=== PATIENT | male | born 2000 | race Caucasian/White ===

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

== ENCOUNTER 2018-04-24 22:30 | Inpatient (IN) ==
[2018-04-24 23:05] LABS: Appearance Urine Clear (Clear); Bilirubin Urine Negative (Negative); Color Urine Yellow; Glucose Urine UA Negative (Negative); Ketones Urine Negative (Negative); Leukocyte Esterase Urine Negative (Negative); Nitrite Urine Negative (Negative); Protein Urine Negative (Negative); Specific Gravity Urine 1.031 (1.000-1.030); Urobilinogen Urine Negative (Negative)
[2018-04-24 23:21] LABS: Basophils # (auto) 0.03 K/uL (0-0.2); Basophils % (auto) 0.4 %; Eosinophils # (auto) 0.22 K/uL (0-0.5); Eosinophils % (auto) 3.2 %; Hematocrit (blood only) 47.3 % (42-52); Hemoglobin 16.6 g/dL (14.0-18.0); Immature Granulocytes # (auto) 0.01 K/uL (0.00-0.02); Immature Granulocytes % (auto) 0.1 %; Lymphocytes # (auto) 2.27 K/uL (1.2-3.4); Lymphocytes % (auto) 32.6 %; Mean Corpuscular Hgb Conc 35.1 g/dL (32-36); Mean Corpuscular Volume 90.3 fL (80-100); Mean Platelet Volume 9.7 fL (7.4-10.4); Monocytes # (auto) 0.49 K/uL (0.11-0.59); Neutrophils # (auto) 3.95 K/uL (1.4-6.5); Neutrophils % (auto) 56.7 %; Platelet Count 230 K/uL (130-400); RDW Coefficient of Variation 12.6 % (11.5-14.5); RDW Standard Deviation 41.3 fL (36.4-46.3); Red Blood Count 5.24 M/uL (4.7-6.1); White Blood Count 6.97 K/uL (4.8-10.8)
[2018-04-24 23:30] LABS: Amphetamines+Metham, Urine Neg (Neg); Barbiturates, Urine Neg (Neg); Benzodiazepine, Urine Neg (Neg); Cocaine, Urine Neg (Neg); MDMA (Ecstacy), Urine Neg (Neg); Methadone, Urine Neg (Neg); Opiate, Urine Neg (Neg); Phencyclidine, Urine Neg (Neg)
[2018-04-24 23:54] LABS: Acetaminophen < 2 ug/ml (10-30); Salicylate < 1.7 mg/dl (2.8-20)
[2018-04-25 00:01] LABS: Albumin Globulin Ratio 1.3 (0.9-2); Albumin Level 3.8 gm/dl (3.4-5.0); BUN Creatinine Ratio 23.3 (10-20); Bilirubin,Total 0.3 mg/dl (0.2-1); Calcium 8.6 mg/dl (8.5-10.1); Creatinine Clr Calc Pharmacy 106.2 ml/min; Est GFR (African American) 113.9; Est GFR (Non-African American) 98.3; Total Protein 6.8 gm/dl (6.4-8.2)
--- NOTE | 2018-04-25 00:51 | Emergency Department Note ---
Entered by Lloyd Galindo acting as a scribe for Ryder Jade MD ED Provider Note Name: Branden Maria Age: 18, Male CC: Depression HPI: The patient is a 18 year old male who presents to the emergency department with complaints of an episode of suicidal ideations occurring today. The patient states that he has had depression for the last four years. He notes that he has recently had problems with a relationship and he reports that he cannot balance his personal problems with his academics. The patient states that he spoke to [facility] today who then called [place] police. He notes that he has been having suicidal ideations and he reports that he has been thinking about overdosing on pills. The patient states that he has been following with a counselor. He notes that he takes Venlafaxine and trazodone. He reports that he has not been admitted for depression in the past. He denies any back pain, nausea, vomiting, headache, and hallucinations. The patient states that he has not used alcohol or drugs tonight. He notes that he does not have any other medical problems and he reports that he does not have a family history of depression or bipolar. ROS: See above HPI for pertinent positives & negatives. A total of 10 systems reviewed and were otherwise negative. Past Medical History: Depression, OCD Past Surgical History: None Family History: None Social History: Student Home Medications: Venlafaxine and trazodone Allergies: None Physical: Vitals: BP 134/72, Pulse 48, Resp 16, Temp 98.6, O2 Sat 98 Exam: GENERAL: Patient is depressed and sad appearing and in no acute distress. EYES: No scleral icterus, unremarkable pupils. ENT: Mucous membranes moist, no nasal congestion. NECK: No masses appreciated, no meningismus, trachea is midline. RESPIRATORY: No dyspnea. Clear to auscultation and equal bilaterally. No wheeze , no rhonchi. CARDIOVASCULAR: Regular rate and rhythm. No murmurs, rubs, gallops appreciated. GASTROINTESTINAL: Abdomen soft, non-tender, no peritonitis. Bowel sounds positive. No masses appreciated. BACK: No midline tenderness, no CVA tenderness EXTREMITIES: Normal motion all extremities, no cyanosis, no edema. NEUROLOGIC: Alert and oriented, no acute motor or sensory deficits, no focal weakness, cranial nerves grossly intact. SKIN: No rash, no jaundice, no diaphoresis. PSYCH: Admits suicidal ideation with plan. ED Course: 2302: Past medical records reviewed. The patient was evaluated in room A8, and a complete history and physical examination were performed. Prior Medical Record , Triage/Nursing Notes, Medications, Allergies reviewed by Me 0005: I reevaluated and updated the patient. He is willing to discuss [facility] inpatient admission. [facility] will come evaluate the patient. 0135: The patient was taken up to [facility]. Labs: Reviewed and unremarkable Vital Signs: reviewed and remarkable for wnl Interventions: none Blood pressure: Normal. No Referral necessary Disposition: Admitted to [address] [place] [address] on 201 basis Differentials: Mood Disorder, Overdose, Infectious, Electrolyte Abnormality, Cardiac, Hepatic, Endocrine, Toxicologic, Neurologic, amongst other pathologies entertained. Medical Decision Makin yr old male with depression who is having increasing thoughts of harm to self. Patient is medically clear. He has not yet attempted harm though is clearly at risk. Admits plan and even recently holding handful of pills he was going to take. 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 Patient stable throughout and admitted to [address] [place] [address] Impression: Depression, suicidal ideation Ryder Jade MD The scribe's documentation has been prepared under my direction and personally reviewed by me in its entirety. I confirm that the note above accurately reflects all work, treatment, procedures, and medical decision making performed by me. Impression & Plan Depression, Suicidal ideation Past Med/Surg History Medical History Depression OCD (obsessive compulsive disorder) Family History Other No significant family history Social History Feels Safe at Home: Yes Smoking Status: Never smoker Hx Alcohol Use: No Hx Substance Use: No Beliefs That Will Affect Care: None Preferred Language: Welsh Communication Ability: Effective [employer] Hrms Developer Required: No Results & Data Vital Signs Vital Signs - 24 hr 04/24/18 22:33 04/25/18 01:37 04/25/18 02:30 Temperature 37 C Temperature Source Oral Sepsis Recent Fever Within 48 Hours No Sepsis New/Unexplained Change in Mental Status No Sepsis Action Taken by Nursing No Action Required Pulse Rate 81 Pulse Rate [Left Finger] Pulse Rate [Left Radial] 48 L Respiratory Rate 18 16 Respiratory Effort / Characteristics Non-Labored Spontaneous Respiratory Depth Normal Respiratory Pattern Regular Blood Pressure 136/80 Blood Pressure [Left Arm] 134/72 Blood Pressure [Right Arm] Blood Pressure Mean 98 Blood Pressure Mean [Left Arm] 92 Blood Pressure Mean [Right Arm] Blood Pressure Position [Right Arm] Pulse Oximetry 95 98 Oxygen Delivery Method Room Air 04/25/18 02:34 Temperature 36.7 C Temperature Source Oral Sepsis Recent Fever Within 48 Hours Sepsis New/Unexplained Change in Mental Status Sepsis Action Taken by Nursing Pulse Rate Pulse Rate [Left Finger] 60 Pulse Rate [Left Radial] Respiratory Rate 16 Respiratory Effort / Characteristics Non-Labored Spontaneous Respiratory Depth Normal Respiratory Pattern Regular Blood Pressure Blood Pressure [Left Arm] Blood Pressure [Right Arm] 165/82 H Blood Pressure Mean Blood Pressure Mean [Left Arm] Blood Pressure Mean [Right Arm] 109 Blood Pressure Position [Right Arm] Sitting Pulse Oximetry 99 Oxygen Delivery Method Room Air Home Medications Current Medication List: was personally reviewed by me Laboratory Data Attestation: I reviewed the patient's lab results. Result diagrams: 04/24/18 23:14 04/24/18 23:14 Lab Results 04/24/18 04/24/18 04/24/18 Range/Units 22:56 22:56 23:14 WBC 6.97 (4.8-10.8) K/uL RBC 5.24 (4.7-6.1) M/uL Hgb 16.6 (14.0-18.0) g/dL Hct 47.3 (42-52) % MCV 90.3 (80-100) fL MCH 31.7 (25-34) pg MCHC 35.1 (32-36) g/dL RDW Std Deviation 41.3 (36.4-46.3) fL RDW Coeff of Chauncey 12.6 (11.5-14.5) % Plt Count 230 (130-400) K/uL MPV 9.7 (7.4-10.4) fL Immature Gran % (Auto) 0.1 % Neut % (Auto) 56.7 % Lymph % (Auto) 32.6 % [place] % (Auto) 7.0 % Eos % (Auto) 3.2 % Baso % (Auto) 0.4 % Immature Gran # (Auto) 0.01 (0.00-0.02) K/uL Neut # (Auto) 3.95 (1.4-6.5) K/uL Lymph # (Auto) 2.27 (1.2-3.4) K/uL [place] # (Auto) 0.49 (0.11-0.59) K/uL Eos # (Auto) 0.22 (0-0.5) K/uL Baso # (Auto) 0.03 (0-0.2) K/uL Sodium (136-145) mmol/L Potassium (3.5-5.1) mmol/L Chloride (98-107) mmol/L Carbon Dioxide (21-32) mmol/L Anion Gap (3-11) BUN (7-18) mg/dl Creatinine (0.6-1.4) mg/dl Est Cr Clr Drug Dosing ml/min Est GFR ( Amer) Est GFR (Non-Af Amer) BUN/Creatinine Ratio (10-20) Glucose (70-99) mg/dl Calcium (8.5-10.1) mg/dl Total Bilirubin (0.2-1) mg/dl AST (15-37) U/L ALT (12-78) U/L Alkaline Phosphatase (45-117) U/L Total Protein (6.4-8.2) gm/dl Albumin (3.4-5.0) gm/dl Globulin (2.5-4.0) gm/dl Albumin/Globulin Ratio (0.9-2) TSH (0.300-4.500) uIu/ml Specimen Hemolysis Urine Color Yellow Urine Appearance Clear (Clear) Urine pH 5.0 (4.5-7.5) Ur Specific Radiant 1.031 H (1.000-1.030) Urine Protein Negative (Negative) Urine Glucose (UA) Negative (Negative) Urine Ketones Negative (Negative) Urine Blood Negative (Negative) Urine Nitrite Negative (Negative) Urine Bilirubin Negative (Negative) Urine Urobilinogen Negative (Negative) Ur Leukocyte Esterase Negative (Negative) Salicylates (2.8-20) mg/dl Urine Opiates Screen Neg (Neg) Ur Methadone, Qual Neg (Neg) Acetaminophen (10-30) ug/ml Urine Barbiturates Neg (Neg) Ur Phencyclidine (PCP) Neg (Neg) U Amphetamin/Meth Scrn Neg (Neg) MDMA (Ecstasy) Screen Neg (Neg) U Benzodiazepines Scrn Neg (Neg) Ur Cocaine Metabolite Neg (Neg) U Marijuana (THC) Screen Neg (Neg) Ethyl Alcohol mg/dL (0-3) mg/dl 04/24/18 04/24/18 04/24/18 Range/Units 23:14 23:14 23:14 WBC (4.8-10.8) K/uL RBC (4.7-6.1) M/uL Hgb (14.0-18.0) g/dL Hct (42-52) % MCV (80-100) fL MCH (25-34) pg MCHC (32-36) g/dL RDW Std Deviation (36.4-46.3) fL RDW Coeff of Chauncey (11.5-14.5) % Plt Count (130-400) K/uL MPV (7.4-10.4) fL Immature Gran % (Auto) % Neut % (Auto) % Lymph % (Auto) % [place] % (Auto) % Eos % (Auto) % Baso % (Auto) % Immature Gran # (Auto) (0.00-0.02) K/uL Neut # (Auto) (1.4-6.5) K/uL Lymph # (Auto) (1.2-3.4) K/uL [place] # (Auto) (0.11-0.59) K/uL Eos # (Auto) (0-0.5) K/uL Baso # (Auto) (0-0.2) K/uL Sodium 139 (136-145) mmol/L Potassium 4.0 (3.5-5.1) mmol/L Chloride 106 (98-107) mmol/L Carbon Dioxide 28 (21-32) mmol/L Anion Gap 5.0 (3-11) BUN 25 H (7-18) mg/dl Creatinine 1.08 (0.6-1.4) mg/dl Est Cr Clr Drug Dosing 106.2 ml/min Est GFR ( Amer) 113.9 Est GFR (Non-Af Amer) 98.3 BUN/Creatinine Ratio 23.3 H (10-20) Glucose 111 H (70-99) mg/dl Calcium 8.6 (8.5-10.1) mg/dl Total Bilirubin 0.3 (0.2-1) mg/dl AST 60 H (15-37) U/L ALT 82 H (12-78) U/L Alkaline Phosphatase 60 (45-117) U/L Total Protein 6.8 (6.4-8.2) gm/dl Albumin 3.8 (3.4-5.0) gm/dl Globulin 3.0 (2.5-4.0) gm/dl Albumin/Globulin Ratio 1.3 (0.9-2) TSH 1.230 (0.300-4.500) uIu/ml Specimen Hemolysis Urine Color Urine Appearance (Clear) Urine pH (4.5-7.5) Ur Specific Radiant (1.000-1.030) Urine Protein (Negative) Urine Glucose (UA) (Negative) Urine Ketones (Negative) Urine Blood (Negative) Urine Nitrite (Negative) Urine Bilirubin (Negative) Urine Urobilinogen (Negative) Ur Leukocyte Esterase (Negative) Salicylates < 1.7 L (2.8-20) mg/dl Urine Opiates Screen (Neg) Ur Methadone, Qual (Neg) Acetaminophen < 2 L (10-30) ug/ml Urine Barbiturates (Neg) Ur Phencyclidine (PCP) (Neg) U Amphetamin/Meth Scrn (Neg) MDMA (Ecstasy) Screen (Neg) U Benzodiazepines Scrn (Neg) Ur Cocaine Metabolite (Neg) U Marijuana (THC) Screen (Neg) Ethyl Alcohol mg/dL < 3.0 (0-3) mg/dl Discharge Plan Visit Data *Final* Discharge Date/Time: 04/25/18 01:39 Chief Complaint: Mental Health Evaluation Stated Complaint: DEPRESSION ED Provider: Ryder Jade Discharge Problem: Depression, Suicidal ideation Patient Disposition: Admitted As Inpatient Discharge Instructions Interventions: ED Discharge Assessment Last Done: 04/25/18 01:39 The scribe's documentation has been prepared under my direction and personally reviewed by me in its entirety. I confirm that the note above accurately reflects all work, treatment, procedures, and medical decision making performed by me.
[2018-04-25] MEDS ORDERED: MAGNESIUM HYDROXIDE SUSP 30 ML UDC PO PRN (02:15)
[2018-04-25] MEDS ORDERED: ALUMINUM/MAGNESIUM SUSP 30 ML UDC PO PRN (02:15)
[2018-04-25] MEDS ORDERED: SODIUM CHLORIDE 0.65% NA SOLN 45 ML (OCEAN) PRN (02:15)
[2018-04-25] MEDS ORDERED: BISMUTH SUBSALICYLATE PER ML OMNICELL CHARGE PO PRN (02:15)
[2018-04-25] MEDS ORDERED: ACETAMINOPHEN 325 MG TAB PO PRN (02:15)
--- NOTE | 2018-04-25 10:09 | History & Physical ---
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 At this point we have been informed by his insurance that we are out of network and they are requiring he be transferred somewhere in network. His parents are requesting that he be transferred closer to home in [place]. We will continue to work with the insurance to find appropriate placement but until then we will order his current outpatient medications including Effexor XR 225 mg daily, trazodone, montelukast and iron supplement. We will provide appropriate treatment during the time that he is on our unit including group and individual therapy. He is deemed safe for transfer to another hospital as long as the transportation is secure. (1) Depression: 04/25 - Continue home meds - Social service will explore hospitals in network with insurance. Patient is agreeable - Q 15 min checks for safety - encourage participation in group and individual counseling - Sign releases for OP providers and parents. - Explore coping strategies for anxiety/obsessive thoughts Active/Remission status: Depression Type: unspecified Major depression episode severity: Major depression recurrence: Psychotic features : Trimester: Qualified Code(s): F32.9 - Major depressive disorder, single episode, unspecified Present on Admission?: Yes Inventory Assets Strengths: Intelligence, support from family Needs: Healthy coping strategies Risk Factors Assessment Male: Yes : Yes Do You Have Access To A Gun?: No Health Problems: No Mental Health Diagnoses: Yes Substance Use Disorders: No Previous Attempt: Yes Family History of Suicide: Yes Previous Psychiatric Hospitalization: No Smoker: No Protective Factors Assessment : No Responsible for Young Children: No Employed: No Supportive Family: Yes Good Rapport with Provider: Yes Psychiatric History Identifying Data ROCK ZARATE is a 18-year-old [employer] Brian, admitted to our unit voluntarily with severe depression and suicidality in the setting of relationship stress. Information is gathered from the patient and considered to be reliable. Chief Complaint "I've been depressed for 3 to 4 years. ". History of Present Illness The patient is a 18-year-old [employer] last 3-4 years. When he first got depressed he reports that it was over stresses at school and running track. Lately he says it is more about relationship issues. He has apparently expressed an interest in a young woman on the track and field team. They have not gone out but he seemed to believe that she was not involved with anyone only recently to find out that she may be seeing somebody else on the track team. He had an experience in high school with a bad breakup, feels that he may be going through this again. He also admits that he has some obsessiveness to his thinking about this girl and the possibility that she is seeing someone else. He has a history of obsessive behaviors in 6 grade including handwashing and excessive concerns about his weight. He admits that he has had suicidal thinking off and on for those 3 or 4 years, but they have gotten more frequent lately and had reported a plan to overdose on medicines. He reports that his sleep has been fine of late only because he is taking trazodone. His appetite is "the same" and weight has been stable. His anxiety is chronic, remembering worry as far back as sixth grade but denies experiencing panic attacks. His energy is described as "pretty low" which has been going on for "a while". He denies ever having had any auditory or visual hallucinations. He does use the word "paranoid" to describe the girl on the track team that he is interested in but it does not sound like true paranoia only that he is worried he is going to go through a difficult situation with her. He denies any self-injurious behaviors. As above, he does admit to restricting his food to some degree in sixth grade because he was worried about his weight, but nothing since that time. He denies any discrete episodes of euphoric mood, sleeplessness or pleasure seeking behaviors that would be congruent with a bipolar disorder. Past Psychiatric History Current Psychiatric Diagnosis: MDR,Anxiety,OCD Outpatient Services: Dr. Jimenez at [facility] Previous Psych Admissions: Denies Do You Have Access To A Gun?: No History of Previous Suicide Attempt: Yes Describe Attempts in the Past: 2 prior attempts by overdose on precription meds - Age 14 and 15 Past Medication Trials: Prozac, Zoloft, both did not work Allergies Allergy/AdvReac Type Severity Reaction Status Date / Time cat dander Allergy Intermediate SNEEZING, Verified 04/24/18 23:00 CONGESTION dog dander Allergy Intermediate SNEEZING, Verified 04/24/18 23:00 CONGESTION grass pollen-perennial rye, Allergy Intermediate CAN CAUSE Verified 04/24/18 23: 00 standar ASTHMA ATTACK Home Medications Home Medications Medication Instructions Recorded Confirmed Type ferrous sulfate [iron] 2 tab PO QAM 04/24/18 04/24/18 History montelukast [Singulair] 10 mg PO QAM 04/24/18 04/24/18 History trazodone 50 mg PO HS 04/24/18 04/24/18 History venlafaxine 75 mg PO QAM 04/24/18 04/24/18 History venlafaxine 150 mg PO QAM 04/24/18 04/24/18 History Family History Family History of: Alcoholism/Drug Abuse (Great great grandfather) Family Mental Health History Comment: Maternal grandmother with an unidentified mental illness Alcohol History Hx of Alcohol Use Over the Past 12 Months: No AUDIT Total Score: 0 Smoking Use Have You Smoked or Used Tobacco Products in the Last 30 Days: No Smoking Status: Never smoker Substance History Hx of Prescription Med Misuse Over the Past 12 Months: No Hx of Over the Counter Med Misuse Over the Past 12 Months: No Hx of Inhalent Misuse Over the Past 12 Months: No Hx of Organic Substance Use Over the Past 12 Months: No Hx of Illegal Substances/Street Drug Use Over Past 12 Months: No Problems as a Result of Past Substance Use: None Identified Personal History Living Arrangements: [employer]artment Highest Grade Completed Comment: [employer] majoring in [employer]. Current GPA 3.6 Employment Status: Student Marital Status: Single Beliefs That Will Affect Care: None Current Legal Problems: No Hx Legal Problems: No Hx Traumatic Life Events: No Patient History Medical History Asthma Depression OCD (obsessive compulsive disorder) Family History Other No significant family history Social History Feels Safe at Home: Yes Smoking Status: Never smoker Hx Alcohol Use: No Hx Substance Use: No Beliefs That Will Affect Care: None Preferred Language: Syriac Communication Ability: Effective Youth Development Specialist Required: No Review of Systems All systems reviewed & are unremarkable except as noted in HPI & below Physical Exam Mental Examination Physical exam performed by Dr. Jade in the emergency department has been reviewed and accepted his medical clearance for our unit. Psychiatric Orientation: alert, oriented x 3 and cooperative Apperance: appropriately dressed and appropriately groomed Eye Contact: + fair eye contact Motor Behavior: steady gait and station and no abnormal motor movements Speech: normal rate/rhythm/volume of speech Affect: + depressed affect and + anxious affect Mood: + depressed mood and + anxious mood Thought Process: goal directed thought process Thought Content: reality based without delusions Suicidal Thoughts: + reports suicidal thoughts and + reports suicidal plan (to OD) Homicidal Thoughts: denies homicidal thoughts Hallucinations: no auditory hallucinations and no visual hallucinations Cognition: recent memory grossly intact, remote memory grossly intact, attention grossly intact and language grossly intact Estimated Intelligence: average estimated intelligence Insight: + impaired insight Judgement: + impaired judgement Vital Signs (Past 24 Hours) Last Vital Signs Temp 36.5 C 04/25/18 06:00 Pulse 54 L 04/25/18 06:00 Resp 16 04/25/18 06:00 BP 136/72 04/25/18 06:00 Pulse Ox 99 04/25/18 02:34 Results & Data Laboratory Results Laboratory Results - last 24 hr 04/24/18 04/24/18 04/24/18 22:56 22:56 23:14 WBC 6.97 RBC 5.24 Hgb 16.6 Hct 47.3 MCV 90.3 MCH 31.7 MCHC 35.1 RDW Std Deviation 41.3 RDW Coeff of Chauncey 12.6 Plt Count 230 MPV 9.7 Immature Gran % (Auto) 0.1 Neut % (Auto) 56.7 Lymph % (Auto) 32.6 Bertie % (Auto) 7.0 Eos % (Auto) 3.2 Baso % (Auto) 0.4 Immature Gran # (Auto) 0.01 Neut # (Auto) 3.95 Lymph # (Auto) 2.27 Bertie # (Auto) 0.49 Eos # (Auto) 0.22 Baso # (Auto) 0.03 Sodium Potassium Chloride Carbon Dioxide Anion Gap BUN Creatinine Est Cr Clr Drug Dosing Est GFR ( Amer) Est GFR (Non-Af Amer) BUN/Creatinine Ratio Glucose Calcium Total Bilirubin AST ALT Alkaline Phosphatase Total Protein Albumin Globulin Albumin/Globulin Ratio TSH Specimen Hemolysis Urine Color Yellow Urine Appearance Clear Urine pH 5.0 Ur Specific [place] 1.031 H Urine Protein Negative Urine Glucose (UA) Negative Urine Ketones Negative Urine Blood Negative Urine Nitrite Negative Urine Bilirubin Negative Urine Urobilinogen Negative Ur Leukocyte Esterase Negative Salicylates Urine Opiates Screen Neg Ur Methadone, Qual Neg Acetaminophen Urine Barbiturates Neg Ur Phencyclidine (PCP) Neg U Amphetamin/Meth Scrn Neg MDMA (Ecstasy) Screen Neg U Benzodiazepines Scrn Neg Ur Cocaine Metabolite Neg U Marijuana (THC) Screen Neg Ethyl Alcohol mg/dL 04/24/18 04/24/18 04/24/18 23:14 23:14 23:14 WBC RBC Hgb Hct MCV MCH MCHC RDW Std Deviation RDW Coeff of Chauncey Plt Count MPV Immature Gran % (Auto) Neut % (Auto) Lymph % (Auto) Bertie % (Auto) Eos % (Auto) Baso % (Auto) Immature Gran # (Auto) Neut # (Auto) Lymph # (Auto) Bertie # (Auto) Eos # (Auto) Baso # (Auto) Sodium 139 Potassium 4.0 Chloride 106 Carbon Dioxide 28 Anion Gap 5.0 BUN 25 H Creatinine 1.08 Est Cr Clr Drug Dosing 106.2 Est GFR ( Amer) 113.9 Est GFR (Non-Af Amer) 98.3 BUN/Creatinine Ratio 23.3 H Glucose 111 H Calcium 8.6 Total Bilirubin 0.3 AST 60 H ALT 82 H Alkaline Phosphatase 60 Total Protein 6.8 Albumin 3.8 Globulin 3.0 Albumin/Globulin Ratio 1.3 TSH 1.230 Specimen Hemolysis Urine Color Urine Appearance Urine pH Ur Specific [place] Urine Protein Urine Glucose (UA) Urine Ketones Urine Blood Urine Nitrite Urine Bilirubin Urine Urobilinogen Ur Leukocyte Esterase Salicylates < 1.7 L Urine Opiates Screen Ur Methadone, Qual Acetaminophen < 2 L Urine Barbiturates Ur Phencyclidine (PCP) U Amphetamin/Meth Scrn MDMA (Ecstasy) Screen U Benzodiazepines Scrn Ur Cocaine Metabolite U Marijuana (THC) Screen Ethyl Alcohol mg/dL < 3.0 Current Inpatient Medications Current Inpatient Medications: Current Inpatient Medications Acetaminophen (Tylenol) 650 mg PO Q4H PRN PRN Reason: Headache or Minor Fever Stop: 05/25/18 02:14 Al Hydrox/Mg Hydrox/Simethicone (Maalox) 30 ml PO Q4H PRN PRN Reason: GI Upset Stop: 05/25/18 02:14 Bismuth Subsalicylate (Kaopectate) 15 ml PO PRN PRN PRN Reason: Loose Stool Stop: 05/25/18 02:14 Hydroxyzine HCl (Vistaril) 50 mg PO HSZ PRN PRN Reason: Insomnia Stop: 05/25/18 02:14 Hydroxyzine HCl (Vistaril) 25 mg PO Q4H PRN PRN Reason: Anxiety Stop: 05/25/18 02:14 Magnesium Hydroxide (Milk Of Magnesia) 30 ml PO DAILY PRN PRN Reason: Heartburn Stop: 05/25/18 02:14 Sodium Chloride ([place] Nasal) 1 - 2 sprays NA PRN PRN PRN Reason: Nasal Dryness/Congestion Stop: 05/25/18 02:14 CPT Code CPT Code Initial Hospital Care: [id number]
[2018-04-25] MEDS ORDERED: VENLAFAXINE HCL XR 75 MG CAPXR PO SCH (10:15)
[2018-04-25] MEDS: VENLAFAXINE HCL XR 150 MG CAPXR PO SCH (12:18)
[2018-04-25] MEDS: MONTELUKAST SODIUM 10 MG TABLET PO SCH (12:18)
[2018-04-25] MEDS: TRAZODONE HCL 50 MG TAB PO SCH (21:00)
[2018-04-25] MEDS: FLUVOXAMINE MALEATE 50 MG TAB PO SCH (21:01)
[2018-04-26] MEDS: VENLAFAXINE HCL XR 150 MG CAPXR PO SCH (09:22)
[2018-04-26] MEDS: MONTELUKAST SODIUM 10 MG TABLET PO SCH (09:22)
[2018-04-26] MEDS: FERROUS SULFATE 325 MG TAB PO SCH (09:22)
--- NOTE | 2018-04-26 10:41 | Psychiatric Progress Note ---
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 We are cross tapering him from venlafaxine XR to Luvox. (1) Depression: 04/25 - Continue home meds - Social service will explore hospitals in network with insurance. Patient is agreeable - Q 15 min checks for safety - encourage participation in group and individual counseling - Sign releases for OP providers and parents. - Explore coping strategies for anxiety/obsessive thoughts 04/26 -Venlafaxine XR decreased to 150 mg daily, and Luvox 50 mg at bedtime started last night. -Family meeting with parents. -Patient encouraged to attend and participate in groups and to work on coping strategies. Inventory Assets Strengths: Intelligence, support from family Needs: Healthy coping strategies Risk Factors Assessment Male: Yes : Yes Do You Have Access To A Gun?: No Health Problems: No Mental Health Diagnoses: Yes Substance Use Disorders: No Previous Attempt: Yes Family History of Suicide: Yes Previous Psychiatric Hospitalization: No Smoker: No Protective Factors Assessment : No Responsible for Young Children: No Employed: No Supportive Family: Yes Good Rapport with Provider: Yes Interval History Identifying Information ROCK ZARATE is a 18-year-old [facility] Brian, admitted to our unit voluntarily with severe depression and suicidality in the setting of relationship stress. Information is gathered from the patient and considered to be reliable. Chief Complaint "It's been pretty much the same thoughts". Review of Systems Sleep Information Total Hours of Sleep: 6.75 Sleep Comments: pt on q-15 minute checks Meal Information Percent Meal Consumed - Breakfast: 100 Percent Meal Consumed - Lunch: 100 Percent Meal Consumed - Dinner: 75 Subjective Subjective Patient was seen & assessed and interval progress reviewed with nursing and social work. Staff report he refused all groups yesterday, but was cooperative with staff assessments. He endorsed ongoing suicidal thoughts, and met with staff one-on-one to talk about his disappointment that a female teammates was interested in another male, but not him. On my assessment, the patient was seen with Josephine Corrales, MS4. He reports mood is unchanged from admission, describes it as "downtrodden," and rates it a 2-3 out of 10. He endorses ongoing suicidal thoughts, with a plan to OD. He feels safe here in the hospital, but reports ongoing obsessive thoughts about the girl he is interested in. He is worried that he will feel better here, but when he sees her at track practice after he leaves, fears this will be a trigger for him. These are alleviated by exercise. He has not been going to groups as he says he would prefer individual therapy. Sleep has been disrupted the past 2 nights , waking several times. He is tolerating his medication changes well, although he thinks he may have some increased anxiety, unclear if this is due to medication changes. Physical Exam Psychiatric Orientation: alert and cooperative Apperance: appropriately dressed, + disheveled and appeared stated age Eye Contact: + poor eye contact Motor Behavior: steady gait and station and no abnormal motor movements Speech: normal rate/rhythm/volume of speech Affect: + depressed affect, + constricted affect and mood congruent with affect Mood: + depressed mood Thought Process: goal directed thought process Thought Content: + preoccupation (With female he is interested in) Suicidal Thoughts: + reports suicidal thoughts Homicidal Thoughts: denies homicidal thoughts Cognition: recent memory grossly intact, attention grossly intact and language grossly intact Estimated Intelligence: consistent with education level Insight: + fair insight Judgement: + fair judgement Vital Signs (Past 24 Hours) Last Vital Signs Temp 36.5 C 04/26/18 07:03 Pulse 66 04/26/18 07:04 Resp 16 04/26/18 07:03 BP 130/70 04/26/18 07:04 Pulse Ox 99 04/25/18 02:34 Results & Data Current Inpatient Medications Current Inpatient Medications: Current Inpatient Medications Acetaminophen (Tylenol) 650 mg PO Q4H PRN PRN Reason: Headache or Minor Fever Stop: 05/25/18 02:14 Al Hydrox/Mg Hydrox/Simethicone (Maalox) 30 ml PO Q4H PRN PRN Reason: GI Upset Stop: 05/25/18 02:14 Bismuth Subsalicylate (Kaopectate) 15 ml PO PRN PRN PRN Reason: Loose Stool Stop: 05/25/18 02:14 Ferrous Sulfate (Feosol) 650 mg PO QAM MATT Stop: 05/26/18 08:59 Last Admin: 04/26/18 09:22 Dose: 650 mg Fluvoxamine Maleate (Luvox) 50 mg PO HS MATT Stop: 05/25/18 21:59 Last Admin: 04/25/18 21:01 Dose: 50 mg Hydroxyzine HCl (Vistaril) 50 mg PO HSZ PRN PRN Reason: Insomnia Stop: 05/25/18 02:14 Hydroxyzine HCl (Vistaril) 25 mg PO Q4H PRN PRN Reason: Anxiety Stop: 05/25/18 02:14 Magnesium Hydroxide (Milk Of Magnesia) 30 ml PO DAILY PRN PRN Reason: Heartburn Stop: 05/25/18 02:14 Montelukast Sodium (Singulair) 10 mg PO QAM MATT Stop: 05/25/18 10:14 Last Admin: 04/26/18 09:22 Dose: 10 mg Sodium Chloride ([place] Nasal) 1 - 2 sprays NA PRN PRN PRN Reason: Nasal Dryness/Congestion Stop: 05/25/18 02:14 Trazodone HCl (Desyrel) 50 mg PO HS MATT Stop: 05/25/18 21:59 Last Admin: 04/25/18 21:00 Dose: 50 mg Venlafaxine HCl (Effexor Extended Release) 150 mg PO QAM MATT Stop: 05/25/18 10:14 Last Admin: 04/26/18 09:22 Dose: 150 mg Post Discharge Appointments Primary Care Physician Name Of Family Doctor: Dr. Guillen in [place] Therapist Name of Therapist: ADELINA Lua Arrow Point Attacher Name of Arrow Point Attacher: None CPT Code CPT Code 70582 _ (1) Depression Active/Remission status: Depression Type: unspecified Major depression episode severity: Major depression recurrence: Psychotic features: Trimester: Qualified Code(s): F32.9 - Major depressive disorder, single episode, unspecified
--- NOTE | 2018-04-26 13:33 | Medical Student Progress Note ---
Date of Service April 26, 2018 Physical Exam 2 Vital Signs (Past 24 Hours): Last Vital Signs Temp 36.5 C 04/26/18 07:03 Pulse 66 04/26/18 07:04 Resp 16 04/26/18 07:03 BP 130/70 04/26/18 07:04 Pulse Ox 99 04/25/18 02:34 Results & Data Medications Administered Ferrous Sulfate (Feosol) 650 mg PO [facility] Stop: 05/26/18 08:59 Last Admin: 04/26/18 09:22 Dose: 650 mg Fluvoxamine Maleate (Luvox) 50 mg PO [facility] Stop: 05/25/18 21:59 Last Admin: 04/25/18 21:01 Dose: 50 mg Montelukast Sodium (Singulair) 10 mg PO [facility] Stop: 05/25/18 10:14 Last Admin: 04/26/18 09:22 Dose: 10 mg Admin: 04/25/18 12:18 Dose: 10 mg Trazodone HCl (Desyrel) 50 mg PO [facility] Stop: 05/25/18 21:59 Last Admin: 04/25/18 21:00 Dose: 50 mg Venlafaxine HCl (Effexor Extended Release) 150 mg PO [facility] Stop: 05/25/18 10:14 Last Admin: 04/26/18 09:22 Dose: 150 mg Admin: 04/25/18 12:18 Dose: 150 mg
[2018-04-26] MEDS: TRAZODONE HCL 50 MG TAB PO SCH (21:27)
[2018-04-26] MEDS: FLUVOXAMINE MALEATE 50 MG TAB PO SCH (21:27)
[2018-04-27] MEDS: FERROUS SULFATE 325 MG TAB PO SCH (09:31)
[2018-04-27] MEDS: MONTELUKAST SODIUM 10 MG TABLET PO SCH (09:31)
[2018-04-27] MEDS: VENLAFAXINE HCL XR 150 MG CAPXR PO SCH (09:31)
--- NOTE | 2018-04-27 13:35 | Psychiatric Progress Note ---
Date of Service April 27, 2018 Impression / Recommendations Impression We are in the process of tapering off of Effexor and so will reduce to 112.5 mg starting tomorrow, and increase Luvox tonight to 75 mg. Will continue to assist the patient to explore coping strategies for stressors and safety planning. We will need to schedule a family meeting. (1) Depression: 04/25 - Continue home meds - Social service will explore hospitals in network with insurance. Patient is agreeable - Q 15 min checks for safety - encourage participation in group and individual counseling - Sign releases for OP providers and parents. - Explore coping strategies for anxiety/obsessive thoughts 04/26 -Venlafaxine XR decreased to 150 mg daily, and Luvox 50 mg at bedtime started last night. -Family meeting with parents. -Patient encouraged to attend and participate in groups and to work on coping strategies. 04/27 - Reduce Effexor XR to 112.5 mg starting tomorrow and increase Luvox to 75 mg HS - Schedule family meeting - Inventory Assets Strengths: Intelligence, support from family Needs: Healthy coping strategies Risk Factors Assessment Male: Yes : Yes Do You Have Access To A Gun?: No Health Problems: No Mental Health Diagnoses: Yes Substance Use Disorders: No Previous Attempt: Yes Family History of Suicide: Yes Previous Psychiatric Hospitalization: No Smoker: No Protective Factors Assessment : No Responsible for Young Children: No Employed: No Supportive Family: Yes Good Rapport with Provider: Yes Interval History Identifying Information ROCK ZARATE is a 18-year-old [facility] Brian, admitted to our unit voluntarily with severe depression and suicidality in the setting of relationship stress. Information is gathered from the patient and considered to be reliable. Chief Complaint "I'm OK. ". Review of Systems Sleep Information Total Hours of Sleep: 6.25 Sleep Comments: pt on q-15 minute checks Meal Information Percent Meal Consumed - Breakfast: 100 Percent Meal Consumed - Lunch: 100 Percent Meal Consumed - Dinner: 100 Subjective Subjective Patient was seen & assessed and interval progress reviewed with Treatment Team. The patient was enjoying a game of [employer] when retrieved for the interview. He says that his mood may be a little better but he is still having thoughts that life is not worth living and still having obsessive thoughts about the girl who didn't want to date him. He repeats that he worries about what will happen after discharge when he sees her or the morgan she is interested in, whether he will feel suicidal again. We review a simple grounding exercise to use to prevent the accelerated anxiety. He talked with his mother by phone today and had a visit from his track vocational trainer last evening. He denies side effects to Luvox and discontinuation symptoms from Effexor taper. He report poor sleep last night due to dreams that he woke up and thought about. He denies they were nightmares. Physical Exam Psychiatric Orientation: alert and cooperative Apperance: appropriately dressed and appropriately groomed Eye Contact: good eye contact Motor Behavior: steady gait and station and no abnormal motor movements Speech: normal rate/rhythm/volume of speech Affect: + depressed affect and + flat affect Mood: + depressed mood Thought Process: goal directed thought process Thought Content: reality based without delusions Suicidal Thoughts: + reports suicidal thoughts Homicidal Thoughts: denies homicidal thoughts Hallucinations: no auditory hallucinations and no visual hallucinations Cognition: recent memory grossly intact, remote memory grossly intact, attention grossly intact and language grossly intact Estimated Intelligence: average estimated intelligence Insight: + impaired insight Judgement: + impaired judgement Vital Signs (Past 24 Hours) Last Vital Signs Temp 36.4 C L 04/27/18 06:51 Pulse 79 04/27/18 06:53 Resp 16 04/27/18 06:51 BP 129/65 04/27/18 06:53 Pulse Ox 99 04/25/18 02:34 Results & Data Current Inpatient Medications Current Inpatient Medications: Current Inpatient Medications Acetaminophen (Tylenol) 650 mg PO Q4H PRN PRN Reason: Headache or Minor Fever Stop: 05/25/18 02:14 Al Hydrox/Mg Hydrox/Simethicone (Maalox) 30 ml PO Q4H PRN PRN Reason: GI Upset Stop: 05/25/18 02:14 Bismuth Subsalicylate (Kaopectate) 15 ml PO PRN PRN PRN Reason: Loose Stool Stop: 05/25/18 02:14 Ferrous Sulfate (Feosol) 650 mg PO QAM MATT Stop: 05/26/18 08:59 Last Admin: 04/27/18 09:31 Dose: 650 mg Fluvoxamine Maleate (Luvox) 75 mg PO HS MATT Stop: 05/27/18 21:59 Hydroxyzine HCl (Vistaril) 50 mg PO HSZ PRN PRN Reason: Insomnia Stop: 05/25/18 02:14 Hydroxyzine HCl (Vistaril) 25 mg PO Q4H PRN PRN Reason: Anxiety Stop: 05/25/18 02:14 Magnesium Hydroxide (Milk Of Magnesia) 30 ml PO DAILY PRN PRN Reason: Heartburn Stop: 05/25/18 02:14 Montelukast Sodium (Singulair) 10 mg PO QAM MATT Stop: 05/25/18 10:14 Last Admin: 04/27/18 09:31 Dose: 10 mg Sodium Chloride ([place] Nasal) 1 - 2 sprays NA PRN PRN PRN Reason: Nasal Dryness/Congestion Stop: 05/25/18 02:14 Trazodone HCl (Desyrel) 50 mg PO HS MATT Stop: 05/25/18 21:59 Last Admin: 04/26/18 21:27 Dose: 50 mg Venlafaxine HCl (Effexor Extended Release) 112.5 mg PO QAM MATT Stop: 05/28/18 08:59 Post Discharge Appointments Primary Care Physician Name Of Family Doctor: Dr. Guillen in [place] Therapist Name of Therapist: ADELINA Lua Mason Apprentice Name of Mason Apprentice: None CPT Code CPT Code 02860 _ (1) Depression Active/Remission status: Depression Type: unspecified Major depression episode severity: Major depression recurrence: Psychotic features: Trimester: Qualified Code(s): F32.9 - Major depressive disorder, single episode, unspecified
[2018-04-27] MEDS: FLUVOXAMINE MALEATE 50 MG TAB PO SCH (21:07)
[2018-04-27] MEDS: TRAZODONE HCL 50 MG TAB PO SCH (21:08)
[2018-04-28] MEDS: FERROUS SULFATE 325 MG TAB PO SCH (08:45)
[2018-04-28] MEDS: MONTELUKAST SODIUM 10 MG TABLET PO SCH (08:45)
[2018-04-28] MEDS: VENLAFAXINE HCL XR 37.5 MG CAPXR PO SCH (08:45)
--- NOTE | 2018-04-28 11:01 | Psychiatric Progress Note ---
Date of Service April 28, 2018 Impression / Recommendations Impression Cross tapering from Effexor to Luvox, which she is tolerating well. Mood remains depressed, with intrusive thoughts. Will continue to assist the patient to explore coping strategies for stressors and safety planning. Family meeting to be held with parents. (1) Depression: 04/25 - Continue home meds - Social service will explore hospitals in network with insurance. Patient is agreeable - Q 15 min checks for safety - encourage participation in group and individual counseling - Sign releases for OP providers and parents. - Explore coping strategies for anxiety/obsessive thoughts 04/26 -Venlafaxine XR decreased to 150 mg daily, and Luvox 50 mg at bedtime started last night. -Family meeting with parents. -Patient encouraged to attend and participate in groups and to work on coping strategies. 04/27 - Reduce Effexor XR to 112.5 mg starting tomorrow and increase Luvox to 75 mg HS - Schedule family meeting 04/28 -Continue cross taper, and encourage active participation in groups and safety planning. -Family meeting with parents who were coming to town tomorrow. Inventory Assets Strengths: Intelligence, support from family Needs: Healthy coping strategies Risk Factors Assessment Male: Yes : Yes Do You Have Access To A Gun?: No Health Problems: No Mental Health Diagnoses: Yes Substance Use Disorders: No Previous Attempt: Yes Family History of Suicide: Yes Previous Psychiatric Hospitalization: No Smoker: No Protective Factors Assessment : No Responsible for Young Children: No Employed: No Supportive Family: Yes Good Rapport with Provider: Yes Interval History Identifying Information ROCK ZARATE is a 18-year-old [facility] Brian, admitted to our unit voluntarily with severe depression and suicidality in the setting of relationship stress. Information is gathered from the patient and considered to be reliable. Chief Complaint "More sad today, because it's Dunn's Day". Review of Systems Sleep Information Total Hours of Sleep: 8 Sleep Comments: pt on q-15 minute checks Meal Information Percent Meal Consumed - Breakfast: 100 Percent Meal Consumed - Lunch: 100 Percent Meal Consumed - Dinner: 100 Subjective Subjective Patient was seen & assessed and interval progress reviewed with Nursing and social work. He reports mood is worse today as it's Dunn's Day, and he doesn't want to talk more about it as he is trying to avoid thinking about the girl who is the object of his affection. He is trying to distract himself, but remains depressed. He has been thinking about how he will deal with having to see this woman at track practice, and is thinking about asking if he can do workouts elsewhere when she is there. He has talked with his mother and has a meeting with parents tomorrow. He denies SEs to medication. Sleep is restless, is tossing and turning. He is unsure if he wants to try a higher dose of trazodone, as in the past he thinks it caused morning sedation, but is not sure what dose he was taking. Physical Exam Psychiatric Orientation: alert and oriented x 3 Apperance: appropriately dressed, appropriately groomed and appeared stated age Patient retrieved from the exercise bike, where he was working out. He is cooperative with the interview, but at times vague. Eye Contact: + poor eye contact (No eye contact, looking at the floor) Motor Behavior: steady gait and station and no abnormal motor movements Speech: normal rate/rhythm/volume of speech Affect: + depressed affect, + constricted affect and mood congruent with affect Mood: + depressed mood Thought Process: goal directed thought process Thought Content: reality based without delusions Intrusive thoughts Suicidal Thoughts: denies suicidal thoughts Homicidal Thoughts: denies homicidal thoughts Hallucinations: no auditory hallucinations Cognition: recent memory grossly intact, attention grossly intact and language grossly intact Estimated Intelligence: consistent with education level Insight: + fair insight Judgement: + fair judgement Vital Signs (Past 24 Hours) Last Vital Signs Temp 36.3 C L 04/28/18 06:52 Pulse 66 04/28/18 06:53 Resp 16 04/28/18 06:52 BP 112/66 04/28/18 06:53 Pulse Ox 99 04/25/18 02:34 Results & Data Current Inpatient Medications Current Inpatient Medications: Current Inpatient Medications Acetaminophen (Tylenol) 650 mg PO Q4H PRN PRN Reason: Headache or Minor Fever Stop: 05/25/18 02:14 Al Hydrox/Mg Hydrox/Simethicone (Maalox) 30 ml PO Q4H PRN PRN Reason: GI Upset Stop: 05/25/18 02:14 Bismuth Subsalicylate (Kaopectate) 15 ml PO PRN PRN PRN Reason: Loose Stool Stop: 05/25/18 02:14 Ferrous Sulfate (Feosol) 650 mg PO QAM MATT Stop: 05/26/18 08:59 Last Admin: 04/28/18 08:45 Dose: 650 mg Fluvoxamine Maleate (Luvox) 75 mg PO HS MATT Stop: 05/27/18 21:59 Last Admin: 04/27/18 21:07 Dose: 75 mg Hydroxyzine HCl (Vistaril) 50 mg PO HSZ PRN PRN Reason: Insomnia Stop: 05/25/18 02:14 Hydroxyzine HCl (Vistaril) 25 mg PO Q4H PRN PRN Reason: Anxiety Stop: 05/25/18 02:14 Magnesium Hydroxide (Milk Of Magnesia) 30 ml PO DAILY PRN PRN Reason: Heartburn Stop: 05/25/18 02:14 Montelukast Sodium (Singulair) 10 mg PO QAM MATT Stop: 05/25/18 10:14 Last Admin: 04/28/18 08:45 Dose: 10 mg Sodium Chloride ([place] Nasal) 1 - 2 sprays NA PRN PRN PRN Reason: Nasal Dryness/Congestion Stop: 05/25/18 02:14 Trazodone HCl (Desyrel) 50 mg PO HS MATT Stop: 05/25/18 21:59 Last Admin: 04/27/18 21:08 Dose: 50 mg Venlafaxine HCl (Effexor Extended Release) 112.5 mg PO QAM MATT Stop: 05/28/18 08:59 Last Admin: 04/28/18 08:45 Dose: 112.5 mg Post Discharge Appointments Primary Care Physician Name Of Family Doctor: Dr. Guillen in [place] Therapist Name of Therapist: ADELINA Lua Registered Nurse Bone Marrow Transplant Name of Registered Nurse Bone Marrow Transplant: None CPT Code CPT Code 56148 _ (1) Depression Active/Remission status: Depression Type: unspecified Major depression episode severity: Major depression recurrence: Psychotic features: Trimester: Qualified Code(s): F32.9 - Major depressive disorder, single episode, unspecified
[2018-04-28] MEDS: TRAZODONE HCL 50 MG TAB PO SCH (21:31)
[2018-04-28] MEDS: FLUVOXAMINE MALEATE 50 MG TAB PO SCH (21:31)
[2018-04-29] MEDS: VENLAFAXINE HCL XR 37.5 MG CAPXR PO SCH (09:06)
[2018-04-29] MEDS: FERROUS SULFATE 325 MG TAB PO SCH (09:06)
[2018-04-29] MEDS: MONTELUKAST SODIUM 10 MG TABLET PO SCH (09:06)
--- NOTE | 2018-04-29 11:52 | Discharge Summary ---
Date of Service April 29, 2018 History of Present Illness The patient is a 18-year-old [facility] last 3-4 years. When he first got depressed he reports that it was over stresses at school and running track. Lately he says it is more about relationship issues. He has apparently expressed an interest in a young woman on the track and field team. They have not gone out but he seemed to believe that she was not involved with anyone only recently to find out that she may be seeing somebody else on the track team. He had an experience in high school with a bad breakup, feels that he may be going through this again. He also admits that he has some obsessiveness to his thinking about this girl and the possibility that she is seeing someone else. He has a history of obsessive behaviors in 6 grade including handwashing and excessive concerns about his weight. He admits that he has had suicidal thinking off and on for those 3 or 4 years, but they have gotten more frequent lately and had reported a plan to overdose on medicines. He reports that his sleep has been fine of late only because he is taking trazodone. His appetite is "the same" and weight has been stable. His anxiety is chronic, remembering worry as far back as sixth grade but denies experiencing panic attacks. His energy is described as "pretty low" which has been going on for "a while". He denies ever having had any auditory or visual hallucinations. He does use the word "paranoid" to describe the girl on the track team that he is interested in but it does not sound like true paranoia only that he is worried he is going to go through a difficult situation with her. He denies any self-injurious behaviors. As above, he does admit to restricting his food to some degree in sixth grade because he was worried about his weight, but nothing since that time. He denies any discrete episodes of euphoric mood, sleeplessness or pleasure seeking behaviors that would be congruent with a bipolar disorder. Physical Exam Vital Signs (Past 24 Hours) Last Vital Signs Temp 36.5 C 04/29/18 06:00 Pulse 60 04/29/18 07:04 Resp 16 04/29/18 06:00 BP 118/70 04/29/18 07:04 Pulse Ox 99 04/25/18 02:34 Principal Diagnosis Major Depressive Disorder, Recurrent Psychiatric Data During the course of the hospitalization the patient was offered various modalities of psychiatric treatment, including pharmacologic interventions as well as individual and group therapies. The patient acknowledges suicidal thoughts at the time of admission, and indicated that he had had such thoughts intermittently over time. However, he has clarified that these thoughts have never been associated with suicidal intent at the time of discharge the patient reports that the suicidal thoughts have stopped. He also reports that his mood has brightened and that he is feeling more optimistic. He identifies various plans for the future and has developed a reasonable safety plan which she feels that he is prepared to put into action should the need arise. He does present with a number of symptoms of obsessive-compulsive disorder, and, in fact, had been given that diagnosis during childhood. During the hospitalization we began crossed titrating venlafaxine with fluvoxamine. The patient does not indicate that he is experienced cessation effects associated with venlafaxine, and the plan will be to continue the slow taper venlafaxine and the titration of Luvox on an outpatient basis, as tolerated. We also discussed with the patient the fact that sertraline may be an option for future treatment, either in combination with Luvox or separately. As noted, the patient reports a history of favorable response to sertraline during childhood Day of Discharge Assessment Mental status the patient was found to be well-dressed and well-groomed man who appeared his stated age. He was fully cooperative. The patient's mood is described as "better, not perfect, but definitely better." The patient's affect remains mildly depressed, but he smiles appropriately and is fairly animated. There is no evidence of any disturbance in thought processes. His associations are tight. His speech is spontaneous, fluid, and delivered at a normal volume and pace. The patient's thought content is devoid of any psychotic features. He reports that he has never experienced any perceptual disturbances. However, his thought content is marked by a long-standing history of obsessive features, including intrusive thoughts that he has trouble dismissing. He acknowledges that he had suicidal thoughts prior to admission, but notes that these thoughts were never accompanied by suicidal intent and he reports that he has not had any suicidal thoughts at all for the past several days. The patient's insight is good, and his judgment is also good as evidenced by the fact that he immediately sought treatment when he felt that his condition was deteriorating. Transition of Care Transition Of Care Record: was reviewed with the patient Advance Directives Advance Directives Information Provided: Yes Advance Directives: No Mental Health Advance Directive: No Advance Directives on File: No Living Will: No Power of Pneumatic Tube Fitter: No Advance Directives Reason:: Declines as Mental Health Visit. Risk Factors Assessment Male: Yes : Yes Do You Have Access To A Gun?: No Health Problems: No Mental Health Diagnoses: Yes Substance Use Disorders: No Previous Attempt: Yes Family History of Suicide: Yes Previous Psychiatric Hospitalization: No Smoker: No Protective Factors Assessment : No Responsible for Young Children: No Employed: No Supportive Family: Yes Good Rapport with Provider: Yes Tobacco Cessation at Discharge Tobacco Cessation Medication Prescribed at Discharge: Not Applicable/Non-Smoker Discharge Data Lab Results 04/24/18 04/24/18 04/24/18 22:56 22:56 23:14 WBC 6.97 RBC 5.24 Hgb 16.6 Hct 47.3 MCV 90.3 MCH 31.7 MCHC 35.1 RDW Std Deviation 41.3 RDW Coeff of Chauncey 12.6 Plt Count 230 MPV 9.7 Immature Gran % (Auto) 0.1 Neut % (Auto) 56.7 Lymph % (Auto) 32.6 [place] % (Auto) 7.0 Eos % (Auto) 3.2 Baso % (Auto) 0.4 Immature Gran # (Auto) 0.01 Neut # (Auto) 3.95 Lymph # (Auto) 2.27 [place] # (Auto) 0.49 Eos # (Auto) 0.22 Baso # (Auto) 0.03 Sodium Potassium Chloride Carbon Dioxide Anion Gap BUN Creatinine Est Cr Clr Drug Dosing Est GFR ( Amer) Est GFR (Non-Af Amer) BUN/Creatinine Ratio Glucose Calcium Total Bilirubin AST ALT Alkaline Phosphatase Total Protein Albumin Globulin Albumin/Globulin Ratio TSH Specimen Hemolysis Urine Color Yellow Urine Appearance Clear Urine pH 5.0 Ur Specific [place] 1.031 H Urine Protein Negative Urine Glucose (UA) Negative Urine Ketones Negative Urine Blood Negative Urine Nitrite Negative Urine Bilirubin Negative Urine Urobilinogen Negative Ur Leukocyte Esterase Negative Salicylates Urine Opiates Screen Neg Ur Methadone, Qual Neg Acetaminophen Urine Barbiturates Neg Ur Phencyclidine (PCP) Neg U Amphetamin/Meth Scrn Neg MDMA (Ecstasy) Screen Neg U Benzodiazepines Scrn Neg Ur Cocaine Metabolite Neg U Marijuana (THC) Screen Neg Ethyl Alcohol mg/dL 04/24/18 04/24/18 04/24/18 23:14 23:14 23:14 WBC RBC Hgb Hct MCV MCH MCHC RDW Std Deviation RDW Coeff of Chaun[place]y Plt Count MPV Immature Gran % (Auto) Neut % (Auto) Lymph % (Auto) [place] % (Auto) Eos % (Auto) Baso % (Auto) Immature Gran # (Auto) Neut # (Auto) Lymph # (Auto) [place] # (Auto) Eos # (Auto) Baso # (Auto) Sodium 139 Potassium 4.0 Chloride 106 Carbon Dioxide 28 Anion Gap 5.0 BUN 25 H Creatinine 1.08 Est Cr Clr Drug Dosing 106.2 Est GFR ( Amer) 113.9 Est GFR (Non-Af Amer) 98.3 BUN/Creatinine Ratio 23.3 H Glucose 111 H Calcium 8.6 Total Bilirubin 0.3 AST 60 H ALT 82 H Alkaline Phosphatase 60 Total Protein 6.8 Albumin 3.8 Globulin 3.0 Albumin/Globulin Ratio 1.3 TSH 1.230 Specimen Hemolysis Urine Color Urine Appearance Urine pH Ur Specific [place] Urine Protein Urine Glucose (UA) Urine Ketones Urine Blood Urine Nitrite Urine Bilirubin Urine Urobilinogen Ur Leukocyte Esterase Salicylates < 1.7 L Urine Opiates Screen Ur Methadone, Qual Acetaminophen < 2 L Urine Barbiturates Ur Phencyclidine (PCP) U Amphetamin/Meth Scrn MDMA (Ecstasy) Screen U Benzodiazepines Scrn Ur Cocaine Metabolite U Marijuana (THC) Screen Ethyl Alcohol mg/dL < 3.0 Hospital Course (1) Depression: 04/25 - Continue home meds - Social service will explore hospitals in network with insurance. Patient is agreeable - Q 15 min checks for safety - encourage participation in group and individual counseling - Sign releases for OP providers and parents. - Explore coping strategies for anxiety/obsessive thoughts 04/26 -Venlafaxine XR decreased to 150 mg daily, and Luvox 50 mg at bedtime started last night. -Family meeting with parents. -Patient encouraged to attend and participate in groups and to work on coping strategies. 04/27 - Reduce Effexor XR to 112.5 mg starting tomorrow and increase Luvox to 75 mg HS - Schedule family meeting 04/28 -Continue cross taper, and encourage active participation in groups and safety planning. -Family meeting with parents who were coming to town tomorrow. 04/29 - Mr. Licona reports that he has had no suicidal thoughts for several days, and notes that while he had had thoughts of overdosing on medications, he describes these thoughts as being alien and not associated with any suicidal intent. - The patient reports a history of OCD symptoms that have changed over time. Initially, he was obsessively worried about contact with infectious agents ( "germs") and was compelled to bathe and wash hands in a specific ritual. More recently, he has had intrusive thoughts and, in response, has felt compelled to follow a specific work-out/exercise program in order to extricate himself from the thoughts. Treated as a child for OCD with sertraline, effectively, and I have suggested that he discuss this with his outpatient psychiatrist as it may be a current treatment option, both for depression and OCD/generalized anxiety. - Continue cross titration of Luvox and venlafaxine on an out patient basis. Post Discharge Appointments Primary Care Physician Name Of Family Doctor: Dr. Gonzales, [facility] Medicine Primary Care Date of Appointment with PCP: 05/03/18 Time of Appointment with PCP: 11:15 Provider Appointment Comment: [address], [address], [place] [address] Psychiatrist Name of Psychiatrist: Dr. Barbara SAHU Psychiatrist's Date of Appointment with Psychiatrist: 05/11/18 Time of Appointment with Psychiatrist: 1pm Psychiatric Appointment Comment: [address] [place] [id number] Therapist Name of Therapist: ADELINA Lua Therapist's Date of Therapist Appointment: 05/02/18 Time of Therapist Appointment: 1pm Therapy Appointment Comment: [address] [place] [id number] [employer] Analyst Name of Security Operations Center Analyst: None Smoking Cessation Counseling Tobacco Cessation Medication Prescribed at Discharge: Not Applicable/Non-Smoker Other #1: Name of Aftercare Appointment: [facility] Phone Number of Aftercare Appointment: [phone] Date of Aftercare Appointment: 05/03/18 Time of Aftercare Appointment: 2 pm Aftercare Appointment Comment: [address] [place] [id number] #2: Name of Aftercare Appointment: Kali Del Angel Phone Number of Aftercare Appointment: [phone] Contact Information Discharge Discharge Address[address] [address], [place] [address] Discharge Plan Discharge Items Patient Disposition: Home - Self-Care Reason For Visit: MDR Discharge Diagnosis: Major Depressive Disorder Discharge Goals: Improve disease control, Improve function, Learn about illness and Therapeutic intervention Activity: Resume your previous activity Lifting Comment: No restriction Bathing: No limitations Sexual Activity: When tolerated Exercise/Sports: None Driving/Machine Use: No limitations Non-emergency contact: Primary Care Provider, Psychiatrist and Therapist Call non-emergency contact if: you have any medication questions and your symptoms worsen Diet: Regular Addtl Provider Instructions: Suggest taking a week off from track and field events. Train on your own during that week. Prescriptions: New venlafaxine 37.5 mg Capsule,Extended Release 24hr 112.5 mg PO QAM 30 Days Qty: 90 RF: 0 trazodone 50 mg Tablet 50 mg PO HS Qty: 0 RF: 0 fluvoxamine 50 mg Tablet 75 mg PO HS 30 Days Qty: 0 RF: 0 Continue ferrous sulfate [iron] 325 mg (65 mg iron) Tablet 2 tab PO QAM RF: 0 montelukast [Singulair] 10 mg Tablet 10 mg PO QAM RF: 0 Discontinued venlafaxine 75 mg Capsule,Extended Release 24hr 75 mg PO QAM RF: 0 trazodone 50 mg Tablet 50 mg PO HS RF: 0 venlafaxine 150 mg Capsule,Extended Release 24hr 150 mg PO QAM RF: 0 Stand-Alone Forms: [facility] Discharge Orders: Discharge Order (Routine); Ordered 04/29/18 Ordered By: Conor Tovar Admission Data Admit Date/Time: 04/25/18 01:09 Attending Provider: Che Hughes Admit Provider: Harleen Garner Primary Care Provider: [place] Service: Psychiatry Other Interventions: PSY Interdisciplinary Discharge Planning Last Done: 04/28/18 14:32 Pending Studies at Discharge: No
== END 2018-04-29 16:30 | disposition home or self-care (01) | DRG 885 ==
LOC: ED 22:30 → 3S 04-25 01:09